=== PATIENT | male | born 1995 | race Caucasian/White ===

== ENCOUNTER 2018-06-17 01:16 | Emergency (ER) | payer OTHER ==
[~2018-06-17] VITALS: Ht 185.4 cm; Wt 109.4 kg
[2018-06-17 07:35] VITALS: BP 145/91
[2018-06-17] MEDS ORDERED: KETOROLAC TROMETH 60MG/2ML VIAL IM ONE (07:45)
== END 2018-06-17 08:13 | disposition home or self-care (01) ==
LOC: ER 01:16
DX: S39.012A Strain of muscle, fascia and tendon of lower back, initial encounter (principal); Z88.2 Allergy status to sulfonamides; Z88.0 Allergy status to penicillin; X50.1XXA Overexertion from prolonged static or awkward postures, initial encounter; Y93.89 Activity, other specified; Y99.0 Civilian activity done for income or pay; Y92.69 Other specified industrial and construction area as the place of occurrence of the external cause
CPT/HCPCS: 72128; 72131; 96372; 99284; J1885

== ENCOUNTER 2018-06-29 11:24 | Emergency (ER) | payer OTHER ==
[~2018-06-29] VITALS: Ht 185.4 cm; Wt 108.9 kg
[2018-06-29 11:30] VITALS: BP 137/77
[2018-06-29] MEDS ORDERED: METHOCARBAMOL 500 MG TAB PO ONE (12:45)
[2018-06-29] MEDS ORDERED: KETOROLAC TROMETH 60MG/2ML VIAL IM ONE (12:45)
== END 2018-06-29 13:29 | disposition home or self-care (01) ==
LOC: ER 11:28
DX: M54.5 Low back pain (principal); M62.830 Muscle spasm of back; Z88.0 Allergy status to penicillin; Z88.2 Allergy status to sulfonamides; W00.0XXA Fall on same level due to ice and snow, initial encounter; Y93.01 Activity, walking, marching and hiking; Y92.69 Other specified industrial and construction area as the place of occurrence of the external cause; Y99.8 Other external cause status
CPT/HCPCS: 96372; 99283; J1885

== ENCOUNTER 2018-08-21 02:58 | Emergency (ER) | payer OTHER ==
[~2018-08-21] VITALS: Ht 185.4 cm; Wt 113.4 kg
[2018-08-21 03:26] VITALS: BP 123/82
[2018-08-21] MEDS ORDERED: IBUPROFEN 800 MG TAB PO ONE (05:15)
[2018-08-21] MEDS ORDERED: ACETAMINOPHEN 500 MG TAB PO ONE (05:15)
== END 2018-08-21 05:40 | disposition home or self-care (01) ==
LOC: ER 03:00
DX: S83.8X1A Sprain of other specified parts of right knee, initial encounter (principal); Z88.0 Allergy status to penicillin; Z88.1 Allergy status to other antibiotic agents; X50.0XXA Overexertion from strenuous movement or load, initial encounter; Y93.89 Activity, other specified; Y99.8 Other external cause status; Y92.69 Other specified industrial and construction area as the place of occurrence of the external cause
CPT/HCPCS: 73562